=== PATIENT | female | born 1945 | race Caucasian/White ===

== ENCOUNTER → 2024-09-21 | Outpatient (CLI) | payer MEDICARE, BC, SELFPAY ==
[2024-09-21 11:26] LABS: Basophils # (Auto) 0.1 Thou/mm3 (0.0-0.2); Basophils % (Auto) 1 % (0-2.5); Eosinophils # (Auto) 0.3 Thou/mm3 (0.0-0.5); Eosinophils % (Auto) 2 % (0-10); Hematocrit 37.4 % (36.0-46.0); Hemoglobin 12.8 g/dL (12.0-16.0); Immature Granulocytes % (Auto) 1 % (0-0); Lymphocytes # (Auto) 3.5 Thou/mm3 (1.0-4.8); Lymphocytes % (Auto) 23 % (10-50); Mean Corpuscular HGB Conc 34.2 g/dl (31.0-37.0); Mean Corpuscular Hemoglobin 28.4 pg (25.0-35.0); Mean Corpuscular Volume 83 fL (80-100); Monocytes % (Auto) 7 % (0-12); Neutrophils # (Auto) 10.3 Thou/mm3 (1.8-7.7); Neutrophils % (Auto) 67 % (37-80); Nucleated Red Blood Cell % 0 /100 WBC (0); Platelet Count 261 Thou/mm3 (140-440); RDW Standard Deviation 41.4 fL (36.4-46.3); White Blood Count 15.3 Thou/mm3 (3.6-11.0)
[2024-09-21 11:36] LABS: Glucose Estimated Average 246 mg/dL (80-131); Hemoglobin A1C 10.2 % Hgb (4.8-6.0)
[2024-09-21 11:54] LABS: Alanine Aminotransferase 28 U/L (10-49); Albumin, Serum 4.6 gm/dL (3.4-4.8); Albumin/Globulin Ratio 1.8 (1.2-2.2); Alkaline Phosphatase 64 U/L (46-116); Anion Gap 8 (7-16); Aspartate Amino Transferase 25 U/L (0-34); BUN/Creatinine Ratio 18 Ratio (12-20); Bilirubin,Total 0.3 mg/dL (0.3-1.2); Blood Urea Nitrogen 18 mg/dL (9-23); Calcium 9.4 mg/dL (8.3-10.6); Calcium (Corrected) 9.4 mg/dL (8.5-10.1); Carbon Dioxide 24.9 mMol/L (20.0-31.0); Cardiac Risk Estimate 2.9 RATIO (3.7-5.6); Chloride 107 mMol/L (98-107); Cholesterol 172 mg/dL (132-200); Free T4 (Free Thyroxine) 1.14 ng/dL (0.89-1.76); Globulin 2.5 gm/dL (2.3-3.5); Glucose 177 mg/dL (74-106); HDL Cholesterol 59 mg/dL (40-60); LDL Cholesterol,Calculated 74 mg/dL (0-130); Osmolality,Calculated 285 (275-295); Potassium 4.2 mMol/L (3.4-5.1); Sodium 140 mMol/L (136-145); Thyroid Stimulating Hormone 1.12 uIU/mL (0.55-4.78); Total Protein 7.1 gm/dL (5.7-8.2); Triglycerides 196 mg/dL (30-150); eGFR 57 See Note
[2024-09-21 12:21] LABS: Folate > 24.00 ng/mL (>5.38); Vitamin B12 775 pg/mL (211-911); Vitamin D 25 Hydroxy Total 26.1 ng/mL (7.3-40.2)
== END | disposition home or self-care (01) ==
LOC: COPL 09:55
PROVIDERS: PCP Family Medicine; Referring Provider Nurse Practitioner; Visit Provider Nurse Practitioner
DX: Z13.1 Encounter for screening for diabetes mellitus (principal); R53.83 Other fatigue
CPT/HCPCS: 36415; 80053; 80061; 82306; 82607; 82746; 83036; 84439; 84443; 84481; 85025

== ENCOUNTER → 2024-11-02 | Outpatient (CLI) | payer MEDICARE, BC, SELFPAY ==
[2024-11-02 09:02] LABS: Collection Type, Urine Clean Catch
[2024-11-02 09:40] LABS: Basophils # (Auto) 0.1 Thou/mm3 (0.0-0.2); Basophils % (Auto) 1 % (0-2.5); Eosinophils # (Auto) 0.3 Thou/mm3 (0.0-0.5); Eosinophils % (Auto) 3 % (0-10); Hematocrit 39.1 % (36.0-46.0); Hemoglobin 12.7 g/dL (12.0-16.0); Immature Granulocytes % (Auto) 1 % (0-0); Immature Granulocytes Auto 0.06 Thou/mm3 (0.00-0.00); Lymphocytes # (Auto) 3.7 Thou/mm3 (1.0-4.8); Lymphocytes % (Auto) 33 % (10-50); Mean Corpuscular HGB Conc 32.5 g/dl (31.0-37.0); Mean Corpuscular Hemoglobin 28.2 pg (25.0-35.0); Mean Corpuscular Volume 87 fL (80-100); Monocytes # (Auto) 0.7 Thou/mm3 (0.0-0.8); Monocytes % (Auto) 6 % (0-12); Neutrophils # (Auto) 6.4 Thou/mm3 (1.8-7.7); Neutrophils % (Auto) 57 % (37-80); Nucleated Red Blood Cell % 0 /100 WBC (0); Platelet Count 292 Thou/mm3 (140-440); RDW Standard Deviation 46.2 fL (36.4-46.3); White Blood Count 11.3 Thou/mm3 (3.6-11.0)
[2024-11-02 09:45] LABS: Glucose Estimated Average 235 mg/dL (80-131); Hemoglobin A1C 9.8 % Hgb (4.8-6.0)
[2024-11-02 10:03] LABS: Alanine Aminotransferase 22 U/L (10-49); Albumin, Serum 4.4 gm/dL (3.4-4.8); Alkaline Phosphatase 51 U/L (46-116); Anion Gap 10 (7-16); Aspartate Amino Transferase 18 U/L (0-34); BUN/Creatinine Ratio 18 Ratio (12-20); Bilirubin,Total 0.4 mg/dL (0.3-1.2); Blood Urea Nitrogen 18 mg/dL (9-23); Calcium 9.7 mg/dL (8.3-10.6); Calcium (Corrected) 9.7 mg/dL (8.5-10.1); Carbon Dioxide 23.5 mMol/L (20.0-31.0); Chloride 108 mMol/L (98-107); Free T4 (Free Thyroxine) 1.08 ng/dL (0.89-1.76); Globulin 2.2 gm/dL (2.3-3.5); Glucose 184 mg/dL (74-106); Osmolality,Calculated 288 (275-295); Potassium 4.9 mMol/L (3.4-5.1); Sodium 141 mMol/L (136-145); Thyroid Stimulating Hormone 1.38 uIU/mL (0.55-4.78); Total Protein 6.6 gm/dL (5.7-8.2); eGFR 57 See Note
[2024-11-02 10:11] LABS: Bacteria,Urine Rare; Bilirubin,Urine Negative (Negative); Blood,Urine Negative (Negative); Color,Urine Lt-Yellow (Lt Yel-Yel); Glucose, Urine Negative (Negative); Ketones,Urine Negative (Negative); Leukocyte Esterase,Urine Positive (Negative); Nitrite,Urine Negative (Negative); PH,Urine 5.5 (5.0-7.0); Protein,Urine Negative (Neg - Trace); RBC,Urine 2 /hpf (0-3); Specific Gravity,Urine 1.016 (1.001-1.035); Squamous Epithelial Cell,Urine 9 /hpf (0-5); Urobilinogen,Urine Negative mg/dL (0.0-1.0); WBC,Urine 83 /hpf (0-5)
[2024-11-02 10:23] LABS: Clarity,Urine Hazy (Clear/Hazy)
== END | disposition home or self-care (01) ==
PROVIDERS: PCP Nurse Practitioner Family; Referring Provider Nurse Practitioner Family; Visit Provider Nurse Practitioner Family
DX: E11.9 Type 2 diabetes mellitus without complications (principal)
CPT/HCPCS: 36415; 80053; 81001; 83036; 84439; 84443; 85025

== ENCOUNTER 2024-11-04 06:10 | Emergency (ER) | payer MEDICARE, BC, SELFPAY ==
[2024-11-04 06:22] VITALS: BP 144/72; PULSE 69; RESP 12; TEMP 36.8; O2SAT 97
[2024-11-04 06:23] VITALS: PULSE 82; RESP 18; O2SAT 98; BMI 28.9
--- NOTE | 2024-11-04 06:44 | PD.EDADULT ---
ED General RME/HPI General Chief complaint: Abdominal Pain Stated complaint: FALL/RT FLANK PAIN Time Seen by Provider: 11/04/24 06:43 Arrival date/time: 11/04/24 06:10 RME / HPI RME / HPI narrative: DR. NOGUEIRA MAIN ED EVALUATION: 79 year old female with past medical history significant for depression, diabetes mellitus, and hypertension presents to the Emergency Department accompanied by her with complaints of not being able to urinate and right flank/ right-sided abdominal pain. Symptoms since this morning. She also mentions this morning at 3 AM she was trying to go to the restroom and she tripped over her walker and fell. No injuries reported. Here, she is very tender to palpation over the chest area. Related Data Home Medications ?Medication ?Instructions ?Recorded ?Confirmed albuterol sulfate 90 mcg/actuation 2 puff inhalation Q4H PRN sob 07/09/17 10/31/20 aerosol inhaler (ProAir HFA) glipizide 5 mg tablet 5 mg PO QDAY 07/09/17 10/31/20 lisinopril 10 mg tablet 10 mg PO QDAY 07/09/17 10/31/20 rosuvastatin 10 mg tablet 10 mg PO HS 10/29/20 10/31/20 escitalopram oxalate 10 mg tablet 10 mg PO QDAY 10/31/20 10/31/20 sitagliptin phos 100 mg-metformin 1 tab PO QPM 10/31/20 10/31/20 ER 1,000 mg tablet,extend rel 24h mp (Janumet XR) Previous Rx's ?Medication ?Instructions ?Recorded acetaminophen 300 mg-codeine 30 mg 1 tab PO Q6HR PRN Pain #40 tabs 11/01/20 tablet docusate sodium 100 mg capsule 100 mg PO QDAY #30 caps 11/01/20 (DOK) rivaroxaban 10 mg tablet (Xarelto) 10 mg PO Q24H #25 tabs 11/01/20 cefuroxime axetil 500 mg tablet 500 mg PO BID #14 tabs 09/09/22 Allergies Allergy/AdvReac Type Severity Reaction Status Date / Time No Known Allergies Allergy Verified 11/04/24 09:37 Review of Systems Review of Systems Systems Reviewed: All systems reviewed, normal except as documented Narrative Review of Systems: Constitutional: DENIES: fevers; Eyes: DENIES: loss of vision; Head/Ear/Nose: DENIES: loss of hearing. Throat: DENIES: dysphagia. Cardiovascular: POSITIVES: chest pain; DENIES: dyspnea, or syncope. Respiratory: DENIES: shortness of breath; Gastrointestinal: POSITIVES: right flank/ right-sided abdominal pain DENIES: rectal bleeding or melena. Genitourinary: POSITIVES: not being able to urinate; DENIES: dysuria (painful or difficult urination); Musculoskeletal: DENIES: arthralgia (pain in a joint); Skin: DENIES: rash; Neurological: DENIES: loss of function or movement; Psychiatric: DENIES: recent major life stressor, emotional problem, illicit drug use or abuse; Endocrinology: DENIES: weight change,; Hematologic/Lymphatic: DENIES: abnormal bruising. Allergic/Immunologic: DENIES: urticaria (hives). Past Medical History Past Medical History CARDIAC: Positive Cardiac Disorders, Hypercholesterolemia and Hypertension RESPIRATORY: Positive Chronic Obstructive Pulmonary Disease (COPD) GASTROINTESTINAL: Positive Gastrointestinal Disorders and Gastroesophageal Reflux Disease REPRODUCTIVE: Positive Previous Pregnancies MUSCULOSKELETAL: Positive Musculoskeletal Disorders, Arthritis and Carpal Tunnel Syndrome ENDOCRINE: Positive Endocrine Disorders, Diabetes Mellitus Type 1 and Diabetes Mellitus Type 2 PSYCHO/SOCIAL: Positive Depression and Anxiety OTHER HISTORY: Positive Hospitalization Family History FAMILY HISTORY: Positive Family Psychiatric Problems, Family Respiratory Disorders, Family Cardiac Disorders and Family Surgery Surgical History SURGICAL: Positive Eye Surgery, Abdominal Surgery, Joint Replacement, Hysterectomy and Section Social History SMOKING STATUS: Never smoker SECOND HAND EXPOSURE: Yes ED Exam Narrative Physical exam: Physical Exam: General: The vital signs were reviewed. The patient is non-toxic, in no apparent distress and appears healthy with a patent airway, no respiratory distress and has no apparent circulatory problems. Head & Scalp: Normocephalic, atraumatic. Face: Appears normal and is without lesions, deformity. Ears: Left external pinna appears normal. Right external pinna appears normal. Eyes: The sclera is anicteric. No obvious photophobia. The Left and Right Orbit/Lid/Conjunctiva appears normal without swelling, discoloration or injection. Nose: The nose is without deformity, discharge or tenderness; Throat: Appears normal. The mucous membranes are pink and moist without exudates, redness or mass seen. The tongue appears normal. Neck: The neck is supple and no apparent mass or adenopathy. Chest: Right lateral thorax is very tender to palpation no crepitus was felt. No palpable subcu air the chest wall is normal in size and symmetry and has no chest wall tenderness or crepitus. The patient displays normal ventilator effort without retractions, accessory muscle use and has adequate air movement bilaterally with no wheezes and no rales. Cardiovascular: Regular rate and rhythm; No murmurs, rubs, or gallops; Gastrointestinal: The abdomen appears normal. No obvious hernias or mass. The abdomen is soft and benign, non-distended, with no pain, no guarding and no rebound tenderness. Bowel sounds are present and normal sounding. No CVA tenderness. Genitourinary: Back/Spine: Normal inspection Extremities/Musculoskeletal/lymphatic: The bilateral upper and lower extremities are warm. There is no evidence of arterial insufficiency. There is no evidence of venous insufficiency/edema. The patient spontaneously moves bilateral upper and lower extremities with no pain and no limitation of movement. There is no apparent, injury or trauma. Skin: The skin is warm, dry and intact. No rashes. No petechia. No purpura. No abnormal bruising. The color is appropriate with no cyanosis. Mental status/Psychiatric: Mental status is appropriate for age. The patient has no apparent delusions, visual hallucinations, no apparent audible hallucinations. The patient has no apparent suicidal thoughts/ideation and no apparent homicidal thoughts/ideation. Neurological: The patient is awake, alert, interactive, cordial, cooperative and is oriented to name and situation. The patient follows commands and answers historical question with no impairment. There is no visual disturbance apparent. The pupils are equal and reactive bilaterally with normal eye movements and no diplopia The bilateral upper and lower extremities have normal strength, normal range of motion and normal functioning. The gait, station and balance appear to be baseline with no acute change Course Quality Measures none Orders Category Date Time Status EKG (ED ONLY) *Do not use* NOW Care 11/04/24 06:48 Completed Caruso [Urinary Catheter] QS Care 11/04/24 06:44 Active Insert IV NOW Care 11/04/24 09:42 Active Miscellaneous Nursing Order NOW Care 11/04/24 06:48 Active EKG (ED Only) Stat Exams 11/04/24 06:48 Ordered XR chest 1V portable Stat Exams 11/04/24 06:48 Completed B-Type Natriuretic Peptide Stat Lab 11/04/24 07:11 Completed CBC Stat Lab 11/04/24 07:11 Completed Comprehensive Metabolic Panel Stat Lab 11/04/24 07:11 Completed Drug Screen,Urine Stat Lab 11/04/24 06:56 Completed Lactate (Lactic Acid) Stat Lab 11/04/24 07:11 Completed Lipase Stat Lab 11/04/24 07:11 Completed Magnesium Stat Lab 11/04/24 07:11 Completed Partial Thromboplastin Time Stat Lab 11/04/24 07:11 Completed Prothrombin Time with INR Stat Lab 11/04/24 07:11 Completed Troponin I Stat Lab 11/04/24 07:11 Completed Urinalysis Stat Lab 11/04/24 06:56 Completed Urinalysis, C/S if Indicated Stat Lab 11/04/24 06:56 Completed Venous Blood Gas Stat Lab 11/04/24 07:11 Completed Morphine Inj Med 11/04/24 09:42 Discontinued 4 mg IVP X1 ONE Ondansetron Inj [Zofran Inj] Med 11/04/24 09:42 Discontinued 4 mg IVP X1 ONE Vital Signs Vital signs: Vital Signs Temperature 98.3 F 11/04/24 06:22 Pulse Rate 69 11/04/24 06:22 Respiratory Rate 12 11/04/24 06:22 Blood Pressure 144/72 H 11/04/24 06:22 Pulse Oximetry (%) 97 11/04/24 06:22 Discharge Plan Plan Patient Disposition: HOME (Self Care) Prescriptions/Referrals Prescriptions/Med Rec: No Action lisinopril 10 mg Tablet 10 mg PO QDAY albuterol sulfate [ProAir HFA] 90 mcg/actuation Hfa Aerosol Inhaler 2 puff INHALATION Q4H PRN (Reason: sob) glipizide 5 mg Tablet 5 mg PO QDAY rosuvastatin 10 mg Tablet 10 mg PO HS escitalopram oxalate 10 mg tablet 10 mg PO QDAY Patient Comments: TAKE 1 TABLET BY MOUTH DAILY Janumet XR 100-1,000 mg tablet, ER multiphase 24 hr 1 tab PO QPM Patient Comments: TAKE 1 TABLET BY MOUTH EVERY EVENING WITH MEALS acetaminophen-codeine 300-30 mg Tablet 1 tab PO Q6HR MDD 4 PRN (Reason: Pain) Qty: 40 0RF docusate sodium [DOK] 100 mg Capsule 100 mg PO QDAY Qty: 30 0RF Xarelto 10 mg Tablet 10 mg PO Q24H Qty: 25 0RF cefuroxime axetil 500 mg tablet 500 mg PO BID Qty: 14 0RF Referrals: No Primary/Family,Physician [Primary Care Provider] - In 1 week Problem List Clinical Impression: Accidental fall, Chest wall contusion Impression comment: Presumed occult rib fractures. Right lateral chest not seen on x-ray Patient/Caregiver Discharge Instructions Education Materials: ED Chest Wall Contusion, ED Contusion, Rib Additional Instructions: As we discussed be careful when you get up. You most likely have a rib fracture that is not seen on the chest x-ray. Expect a minimum of pain in the right lateral chest for 7 to 10 days and if it last 2 to 3 weeks is most likely a rib fracture. Return if getting fevers or worse. Take big deep breaths to stretch out your chest to avoid pneumonia. Use an incentive spirometer to encourage deep breathing and avoid complications. You can use ibuprofen for pain take it with food to avoid upsetting her stomach and bleeding. See your doctor in 3 to 5 days for reevaluation or return if getting worse. Print Language: Welsh MDM Narrative MDM hospital course: Sandra Ingram, am scribing for and in the presence of Dr. Nogueira. Patient 79-year-old who got up this morning and while walking tripped and fell and complains of right lateral chest pain. There is no crepitance felt. Chest x-ray has no infiltrates no effusion no hemopneumothorax. Heart silhouette is within normal limits. Medical workup reveals urine drug screen positive for marijuana otherwise negative. CBC with a white count of 13.7 hemoglobin of 12.2. PT/INR within normal limits pH is 7.44 and a venous blood gas pCO2 of 37 electrolytes are normal BUN/creatinine are 15 and 0.8. Glucose is 171 lactic acid is normal at 1.7 AST ALT and bilirubins are within normal limits troponin and BNP are negative. Patient was having lots of pain got some morphine and Zofran is feeling much better and feels like she is safe to go home. Nurse got her up to ambulate her and she ambulated with pain but stable. Also patient reported that she could not pee when she arrived and was sitting on the bedpan with no urine output so we put a Caruso catheter and got 200 cc out. Do not feel she has acute urinary retention based on that number. We will remove the catheter. Clinical Information Provided by patient and EMS Medical Records Reviewed EMS Meds/Rx Considered, not Ordered None Labs/Rad/Tests considered, not Ordered None Chronic Illness/Social Conditions Add or document further as needed: depression, diabetes mellitus, and hypertension EKG EKG Interpretation narrative: My interpretation: EKG performed at 0646 hours, junctional rhythm with occasional ventricular premature complexes, rate 63, no STEMI Lab Interpretation Labs: see narrative above Imaging Imaging interpretation: see narrative above Provider imaging interpretation(s): Chest x-ray: my interpretation shows: no infiltrates, no effusion, no pneumothorax, no obvious rib fractures but she did not take a deep breath Radiology reports / interpretation(s): Procedure(s): XR chest 1V portable Accession Number(s): [id number] cc: Alexander Nogueira MD; Gordon Rodriguez MD; NO PRIMARY/FAMILY,PHYSICIAN~ Examination: AP chest single view TECHNIQUE: AP portable upright chest single view Date and time: November 04, 2024 0743 hours Comparison 05/31/2023 INDICATIONS: Acute chest pain today. FINDINGS: Normal heart size Lungs are clear. Reverse right shoulder arthroplasty Advanced narrowing left glenohumeral joint IMPRESSION: No active disease Dictated By: Gordon Rodriguez MD Medication Administration(s) Medication Administration History Discontinued Medications Morphine Sulfate (Morphine Sulf Inj 10 Mg/Ml Vial) 4 mg IVP X1 ONE Stop: 11/04/24 09:43 Last Admin: 11/04/24 09:50 Dose: 4 mg Documented By: ARSEN Ondansetron HCl (Ondansetron Inj 2 Mg/Ml Inj 2 Ml) 4 mg IVP X1 ONE; Protocol Stop: 11/04/24 09:43 Last Admin: 11/04/24 09:48 Dose: 4 mg Documented By: ARSEN Diagnosis Differential diagnosis: Kidney stones, UTI, costochondritis, muscle spasm Most likely dx, and/or detailed dx discussion: Accidental fall Chest wall contusion Dispositon Disposition: Discharge Home
--- NOTE | 2024-11-04 06:48 | XR_ITS ---
Examination: AP chest single view TECHNIQUE: AP portable upright chest single view Date and time: November 04, 2024 0743 hours Comparison 05/31/2023 INDICATIONS: Acute chest pain today. FINDINGS: Normal heart size Lungs are clear. Reverse right shoulder arthroplasty Advanced narrowing left glenohumeral joint IMPRESSION: No active disease
[2024-11-04 07:06] LABS: Collection Type, Urine Clean Catch
[2024-11-04 07:18] LABS: Base Excess, Venous 1 (-3-3); Lactate (Lactic Acid) 1.7 mMol/L (0.4-2.0); O2 Saturation, Venous 61 % (96-97); PCO2, Venous 37 mmHg (36-56); PO2, Venous 30 mmHg (15-58); pH, Venous 7.44 (7.33-7.66)
[2024-11-04 07:26] LABS: Bilirubin,Urine Negative (Negative); Blood,Urine Negative (Negative); Clarity,Urine Clear (Clear/Hazy); Color,Urine Lt-Yellow (Lt Yel-Yel); Culture Indicated,Urine Not Indicated; Glucose, Urine Trace (Negative); Ketones,Urine Negative (Negative); Leukocyte Esterase,Urine Negative (Negative); Nitrite,Urine Negative (Negative); Protein,Urine Negative (Neg - Trace); RBC,Urine 2 /hpf (0-3); Specific Gravity,Urine 1.015 (1.001-1.035); Squamous Epithelial Cell,Urine < 1 /hpf (0-5); Urobilinogen,Urine Negative mg/dL (0.0-1.0); WBC,Urine 1 /hpf (0-5)
[2024-11-04 07:27] LABS: Amphetamine/Methamp Scrn,U Negative (Negative); Barbiturate Screen,Urine Negative (Negative); Benzodiazepines Screen,Urine Negative (Negative); Benzoylecgonine Screen, Ur Negative (Negative); Fentanyl Screen,Urine Negative (Negative); Opiate Screen,Urine Negative (Negative); THC Screen,Urine Positive (Negative)
[2024-11-04 07:29] LABS: Basophils # (Auto) 0.1 Thou/mm3 (0.0-0.2); Basophils % (Auto) 0 % (0-2.5); Eosinophils # (Auto) 0.2 Thou/mm3 (0.0-0.5); Eosinophils % (Auto) 1 % (0-10); Hematocrit 35.3 % (36.0-46.0); Hemoglobin 12.2 g/dL (12.0-16.0); Immature Granulocytes % (Auto) 1 % (0-0); Immature Granulocytes Auto 0.08 Thou/mm3 (0.00-0.00); Lymphocytes # (Auto) 3.2 Thou/mm3 (1.0-4.8); Lymphocytes % (Auto) 23 % (10-50); Mean Corpuscular HGB Conc 34.6 g/dl (31.0-37.0); Mean Corpuscular Hemoglobin 28.5 pg (25.0-35.0); Mean Corpuscular Volume 83 fL (80-100); Monocytes # (Auto) 0.7 Thou/mm3 (0.0-0.8); Monocytes % (Auto) 5 % (0-12); Neutrophils # (Auto) 9.5 Thou/mm3 (1.8-7.7); Neutrophils % (Auto) 69 % (37-80); Nucleated Red Blood Cell % 0 /100 WBC (0); Platelet Count 222 Thou/mm3 (140-440); RDW Standard Deviation 43.2 fL (36.4-46.3); Red Blood Count 4.28 Miln/mm3 (4.00-5.20); White Blood Count 13.7 Thou/mm3 (3.6-11.0)
[2024-11-04 07:38] LABS: Partial Thromboplastin Time 22.5 Seconds (22.0-36.0); Prothrombin Time 11.3 Seconds (9.0-12.2)
[2024-11-04 07:40] LABS: Alanine Aminotransferase 25 U/L (10-49); Albumin, Serum 4.4 gm/dL (3.4-4.8); Albumin/Globulin Ratio 2.1 (1.2-2.2); Alkaline Phosphatase 49 U/L (46-116); Anion Gap 8 (7-16); Aspartate Amino Transferase 21 U/L (0-34); BUN/Creatinine Ratio 19 Ratio (12-20); Bilirubin,Total 0.4 mg/dL (0.3-1.2); Blood Urea Nitrogen 15 mg/dL (9-23); Calcium 9.5 mg/dL (8.3-10.6); Calcium (Corrected) 9.5 mg/dL (8.5-10.1); Carbon Dioxide 24.5 mMol/L (20.0-31.0); Chloride 108 mMol/L (98-107); Creatinine (Component) 0.8 mg/dL (0.6-1.3); Estimated Creatinine Clearance 48.7 mL/min (>60); Globulin 2.1 gm/dL (2.3-3.5); Glucose 171 mg/dL (74-106); Lipase 60 U/L (12-53); Magnesium 1.4 mg/dL (1.6-2.6); Osmolality,Calculated 284 (275-295); Potassium 4.4 mMol/L (3.4-5.1); Sodium 140 mMol/L (136-145); Total Protein 6.5 gm/dL (5.7-8.2); Troponin I < 0.020 ng/mL (0.0-0.045); eGFR > 60 See Note
[2024-11-04 07:42] LABS: B-Type Natriuretic Peptide 56 pg/mL (0-100)
[2024-11-04 08:01] VITALS: BP 158/86; PULSE 78; RESP 19; O2SAT 97
[2024-11-04] MEDS: ONDANSETRON INJ 2 MG/ML INJ 2 ML 4 MG IVP (09:48)
[2024-11-04] MEDS: MORPHINE SULF INJ 10 MG/ML VIAL 4 MG IVP (09:50)
[2024-11-04 10:14] VITALS: BP 147/90; PULSE 76; RESP 18; TEMP 36.6; O2SAT 97
[2024-11-04 12:03] VITALS: BP 124/77; PULSE 71; RESP 18; TEMP 36.9; O2SAT 95
--- NOTE | 2024-11-04 12:36 | PC.NURSE ---
patient walked around unit with minimal assistance
--- NOTE | 2024-11-04 12:52 | PC.NURSE ---
attempted to call patients for pickup no answer at this time
[2024-11-04 13:37] VITALS: BP 131/81; PULSE 69; RESP 20; TEMP 36.5; O2SAT 98
== END 2024-11-04 13:39 | disposition home or self-care (01) ==
PROVIDERS: Emergency Provider Emergency Medicine
DX: S20.219A Contusion of unspecified front wall of thorax, initial encounter (principal); I49.3 Ventricular premature depolarization; I10 Essential (primary) hypertension; E78.00 Pure hypercholesterolemia, unspecified; W01.0XXA Fall on same level from slipping, tripping and stumbling without subsequent striking against object, initial encounter; Y93.01 Activity, walking, marching and hiking; Y92.002 Bathroom of unspecified non-institutional (private) residence as the place of occurrence of the external cause
CPT/HCPCS: 51702; 36415; 71045; 80053; 80307; 81001; 82803; 83605; 83690; 83735; 83880; 84484; 85025; 85610; 85730; 96374; 96375; 99284; A4314; J2270; J2405

== ENCOUNTER 2024-11-06 07:24 | Emergency (ER) | payer MEDICARE, BC, SELFPAY ==
[2024-11-06 07:29] VITALS: BP 149/73; PULSE 65; RESP 18; TEMP 37.1; O2SAT 96; BMI 28.3
--- NOTE | 2024-11-06 07:45 | PC.NURSE ---
PATIENT CAME IN WITH C/O RT RIB PAIN S/P FALL 2 DAYS AGO. PT WAS SEEN HERE AND WAS DX WITH RIB CONTUSIONS. PT STATES HER TAKES CARE OF HER BUT HE'S OLD AND HE CANT ANYMORE. PT APPEARS FRUSTRATED WITH HIM. I ASKED IF SHE HAD TAKEN ANY OF HER PRESCRIBED MEDS FOR PAIN SHE SAID HER HAS NOT GIVEN THEM TO HER. PT REQUEST INFO ON SNF PLACEMENT
--- NOTE | 2024-11-06 07:53 | PD.EDADULT ---
ED General RME/HPI General Chief complaint: Chest Pain Stated complaint: BROKEN RIBS Time Seen by Provider: 11/06/24 07:53 Arrival date/time: 11/06/24 07:24 Limitations: no limitations RME / HPI RME / HPI narrative: DR. GOSS MAIN ED EVALUATION: 79 year old female with past medical history significant for diabetes mellitus, hypertension, and depression presents to the Emergency Department [facility] with complaint of right rib/ chest pain worsening today. Patient was seen here and discharged with accidental fall and chest wall contusion on 11/04/24. No other symptoms reported at this time. Related Data Home Medications ?Medication ?Instructions ?Recorded ?Confirmed albuterol sulfate 90 mcg/actuation 2 puff inhalation Q4H PRN sob 07/09/17 10/31/20 aerosol inhaler (ProAir HFA) glipizide 5 mg tablet 5 mg PO QDAY 07/09/17 10/31/20 lisinopril 10 mg tablet 10 mg PO QDAY 07/09/17 10/31/20 rosuvastatin 10 mg tablet 10 mg PO HS 10/29/20 10/31/20 escitalopram oxalate 10 mg tablet 10 mg PO QDAY 10/31/20 10/31/20 sitagliptin phos 100 mg-metformin 1 tab PO QPM 10/31/20 10/31/20 ER 1,000 mg tablet,extend rel 24h mp (Janumet XR) Previous Rx's ?Medication ?Instructions ?Recorded acetaminophen 300 mg-codeine 30 mg 1 tab PO Q6HR PRN Pain #40 tabs 11/01/20 tablet docusate sodium 100 mg capsule 100 mg PO QDAY #30 caps 11/01/20 (DOK) rivaroxaban 10 mg tablet (Xarelto) 10 mg PO Q24H #25 tabs 11/01/20 cefuroxime axetil 500 mg tablet 500 mg PO BID #14 tabs 09/09/22 hydrocodone 5 mg-acetaminophen 325 1 tab PO Q12H pain #14 tabs 11/06/24 mg tablet Allergies Allergy/AdvReac Type Severity Reaction Status Date / Time No Known Allergies Allergy Verified 11/04/24 09:37 Review of Systems Review of Systems Systems Reviewed: All systems reviewed, normal except as documented Past Medical History Past Medical History CARDIAC: Positive Cardiac Disorders, Hypercholesterolemia and Hypertension RESPIRATORY: Positive Chronic Obstructive Pulmonary Disease (COPD) GASTROINTESTINAL: Positive Gastrointestinal Disorders and Gastroesophageal Reflux Disease REPRODUCTIVE: Positive Previous Pregnancies MUSCULOSKELETAL: Positive Musculoskeletal Disorders, Arthritis and Carpal Tunnel Syndrome ENDOCRINE: Positive Endocrine Disorders, Diabetes Mellitus Type 1 and Diabetes Mellitus Type 2 PSYCHO/SOCIAL: Positive Depression and Anxiety OTHER HISTORY: Positive Hospitalization Family History FAMILY HISTORY: Positive Family Psychiatric Problems, Family Respiratory Disorders, Family Cardiac Disorders and Family Surgery Surgical History SURGICAL: Positive Eye Surgery, Abdominal Surgery, Joint Replacement, Hysterectomy and Section Social History SMOKING STATUS: Never smoker SECOND HAND EXPOSURE: Yes SUBSTANCE USE: does not use ALCOHOL: Never ED Exam General Limitations: Present no limitations General appearance: Present alert, in no apparent distress and other (Patient seems sad.) Head Head exam: Present atraumatic, normocephalic and normal inspection Eye Eye exam: Present normal appearance, PERRL and EOMI ENT ENT exam: Present normal exam, normal oropharynx and mucous membranes moist Neck Neck exam: Present normal inspection, full ROM and trachea midline Chest Chest inspection: Present symmetric chest wall rise and tenderness (right anterior chest tenderness) Respiratory Respiratory exam: Present normal lung sounds bilaterally Cardiovascular Cardiovascular exam: Present regular rate, normal rhythm and normal heart sounds Abdominal Exam Abdominal exam: Present tenderness (right flank tenderness) and normal bowel sounds Extremities Exam Extremities exam: Present normal inspection and full ROM Back Exam Back exam: Present normal inspection and full ROM Neurological Exam Neurological exam: Present alert, oriented X3 and CN II-XII intact Psychiatric Psychiatric exam: Present normal affect and normal mood Skin Skin exam: Present warm, dry, intact and normal color Course Quality Measures none Orders Category Date Time Status Consult [employer]sembl[employer] NOW Care 11/06/24 08:02 Active XR ribs RT min 3V w CXR1V Stat Exams 11/06/24 07:57 Completed Ketorolac Inj [Toradol Inj] Med 11/06/24 07:57 Discontinued 30 mg IM X1 ONE Vital Signs Vital signs: Vital Signs Temperature 98.7 F 11/06/24 07:29 Pulse Rate 65 11/06/24 07:29 Respiratory Rate 18 11/06/24 07:29 Blood Pressure 149/73 H 11/06/24 07:29 Pulse Oximetry (%) 96 11/06/24 07:29 Oxygen Delivery Method Room Air 11/06/24 07:29 Discharge Plan Plan Patient Disposition: HOME (Self Care) Patient condition on transfer: Stable Prescriptions/Referrals Prescriptions/Med Rec: New hydrocodone-acetaminophen 5-325 mg tablet 1 tab PO Q12H MDD 2 Qty: 14 0RF No Action lisinopril 10 mg Tablet 10 mg PO QDAY albuterol sulfate [ProAir HFA] 90 mcg/actuation Hfa Aerosol Inhaler 2 puff INHALATION Q4H PRN (Reason: sob) glipizide 5 mg Tablet 5 mg PO QDAY rosuvastatin 10 mg Tablet 10 mg PO HS escitalopram oxalate 10 mg tablet 10 mg PO QDAY Patient Comments: TAKE 1 TABLET BY MOUTH DAILY Janumet XR 100-1,000 mg tablet, ER multiphase 24 hr 1 tab PO QPM Patient Comments: TAKE 1 TABLET BY MOUTH EVERY EVENING WITH MEALS acetaminophen-codeine 300-30 mg Tablet 1 tab PO Q6HR MDD 4 PRN (Reason: Pain) Qty: 40 0RF docusate sodium [DOK] 100 mg Capsule 100 mg PO QDAY Qty: 30 0RF Xarelto 10 mg Tablet 10 mg PO Q24H Qty: 25 0RF cefuroxime axetil 500 mg tablet 500 mg PO BID Qty: 14 0RF Problem List Clinical Impression: Fracture, rib, Rib contusion Patient/Caregiver Discharge Instructions Education Materials: ED Rib Fracture, ED Contusion, Rib Additional Instructions: Take Tylenol 500 mg 2 tabs every 6 hours PLUS Advil 200 mg gel 2 tablets as needed for pain. Please follow-up with your primary care physician within 2-3 days. Return to the Emergency Department as needed. Print Language: Palestinian Stand Alone Forms: [employer] Award Info., Patient Portal Info Letter MDM Narrative [facility] hospital course: I, Sandra Welch, am scribing for and in the presence of Dr. Goss. Patient seems sad, states her is not able to take care of her. Patient remains clinically stable throughout the emergency department visit. Re-assessment at the time of disposition demonstrates that the patient is in no acute distress. We reviewed all the results, analysis, and treatment plans. Patient is amenable to discharge. Strict return precautions were outlined. Patient was discharged in stable condition. Will follow up with her PCP for possible placement and to follow up her right rib fracture. Clinical Information Provided by patient and EMS Medical Records Reviewed [facility] and EMS Meds/Rx Considered, not Ordered None Labs/Rad/Tests considered, not Ordered None Chronic Illness/Social Conditions Add or document further as needed: Diabetes mellitus, hypertension, and depression EKG EKG not done Lab Interpretation Labs: none Imaging Radiology reports / interpretation(s): Procedure(s): XR ribs RT min 3V w CXR1V Accession Number(s): [id number] cc: Tristen Goss MD; Gordon Rodriguez MD; NO PRIMARY/FAMILY,PHYSICIAN~ Examination: Ribs, right, with AP chest, 5 views Technique: Chest PA, RIBS AP, RPO, LPO, AP coned lower ribs 5 views Exam date and time: November 06, 2024 0934 hrs. Indications: Patient fell today with injury to the right chest, right rib pain Findings: Mild prominence left ventricle Subsegmental atelectasis right base. No pneumothorax Significant osteopenia The ribs are overpenetrated Acute appearing fracture right ninth rib posterior laterally Impression: No pneumothorax Acute appearing fracture right ninth rib posterior laterally Dictated By: Gordon Rodriguez MD Medication Administration(s) Medication Administration History Discontinued Medications Ketorolac Tromethamine (Ketorolac Inj 30 Mg/Ml Vial) 30 mg IM X1 ONE Stop: 11/06/24 07:58 Last Admin: 11/06/24 08:12 Dose: 30 mg Documented By: LF Diagnosis Differential diagnosis: Rib contusion, rib fracture, costochondritis Most likely dx, and/or detailed dx discussion: Rib contusion Right rib fracture Dispositon Disposition: Discharge Home
--- NOTE | 2024-11-06 07:57 | XR_ITS ---
Examination: Ribs, right, with AP chest, 5 views Technique: Chest PA, RIBS AP, RPO, LPO, AP coned lower ribs 5 views Exam date and time: November 06, 2024 0934 hrs. Indications: Patient fell today with injury to the right chest, right rib pain Findings: Mild prominence left ventricle Subsegmental atelectasis right base. No pneumothorax Significant osteopenia The ribs are overpenetrated Acute appearing fracture right ninth rib posterior laterally Impression: No pneumothorax Acute appearing fracture right ninth rib posterior laterally
[2024-11-06] MEDS: KETOROLAC INJ 30 MG/ML VIAL IM (08:12)
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
--- NOTE | 2024-11-06 08:16 | PC.NURSE ---
LIGIA TEAM PRIMARY CARE PHYSICIAN IN TO SPEAK WITH PT REGARDING REQUEST FOR SNF PLACEMENT. INFO GIVEN TO PT SHOWING ALL AVAILABLE LOCAL SNF'S. LIGIA INFORMED PT THAT SHE WILL NEED TO CALL [facility] ON THURSDAY SO THEY CAN REFER HER TO A SNF. PT VERBALIZED UNDERSTANDING
--- NOTE | 2024-11-06 08:24 | PC.NURSE ---
HERE TO SEE PT, PT NOT WANTING VISITORS AT THIS TIME. AWARE.
[2024-11-06 10:22] VITALS: BP 126/58; PULSE 70; RESP 18; TEMP 36.7; O2SAT 98
--- NOTE | 2024-11-06 11:13 | PC.NURSE ---
ATTEMPTED TO CALL NO ANSWER WILL ATTEMPT TO CALL AGAIN AT A LATER TIME
[2024-11-06 12:09] VITALS: BP 152/87; PULSE 79; TEMP 36.8; O2SAT 96
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
--- NOTE | 2024-11-06 12:28 | PC.NURSE ---
ATTEMPTED TO CALL FINAL ASSEMBLY AND PACKING SUPERVISOR MULTIPLE TIMES NO ANSWER
--- NOTE | 2024-11-06 12:34 | PC.NURSE ---
earl case finisher in room talking with patient
--- NOTE | 2024-11-06 12:38 | PC.NURSE ---
jayesh renal case manager spoke with patient and let me know okay to go
== END 2024-11-06 12:44 | disposition home or self-care (01) ==
PROVIDERS: Emergency Provider Family Medicine
DX: S22.31XA Fracture of one rib, right side, initial encounter for closed fracture (principal); W19.XXXA Unspecified fall, initial encounter; I10 Essential (primary) hypertension; E11.9 Type 2 diabetes mellitus without complications; F32.A Depression, unspecified
CPT/HCPCS: 71101; 96372; 99283; J1885

== ENCOUNTER → 2024-11-15 | Outpatient (CLI) | payer MEDICARE, BC, SELFPAY ==
--- NOTE | 2024-11-15 13:00 | XR_ITS ---
Examination: MRI brain without intravenous contrast. Date and time of exam: November 15, 2024 1341 hours INDICATIONS: Hearing disturbances beginning one month ago Technique: Multiple axial and sagittal images of the brain obtained. Siemens high-resolution 1.5 Tracy short bore scanners utilized. Sagittal sections, T1-weighted, TR 500, TE 14, are performed. Axial sections proton-density and T2-weighted have been obtained. Inversion recovery axial images, TR 9, 260, TE 111, TI 2500. Diffusion weighted images, axial sections, TR 4800, TE 128, B value 1000 Axial sections, ADC map, TR 4800, TE 128 Findings: Enlargement of the sella turcica is not present. The optic chiasm and infundibular are not remarkable. Prepontine and interpeduncular cisterns are not enlarged. There is no localized enlargement of the medulla or brant. Fourth ventricle and cerebellar tonsils appear normal in position. No subacute area of hemorrhage density is seen. Mass in the cerebellopontine angle region is not evident. Globes symmetrical. Orbital musculature including medial lateral rectus muscles do not exhibit abnormality. Diffusion-weighted images demonstrate no focus of restricted diffusion. Increased white matter signal mild Mass effect upon the ventricular system is not identified. Impression: Negative for acute hemorrhage mass effect or midline shift No acute infarct Mild chronic microvascular white matter change Moderate chronic ethmoid sinusitis, severe left maxillary antral chronic sinusitis Mild right mastoiditis
== END | disposition home or self-care (01) ==
PROVIDERS: PCP Family Medicine; Referring Provider Nurse Practitioner Family; Visit Provider Nurse Practitioner Family
DX: R90.82 White matter disease, unspecified (principal); J32.8 Other chronic sinusitis; H70.891 Other mastoiditis and related conditions, right ear
CPT/HCPCS: 70551

== ENCOUNTER 2025-03-07 12:11 | Emergency (ER) | payer MEDICARE, BC, SELFPAY ==
[2025-03-07 12:13] VITALS: BP 138/81; PULSE 74; RESP 16; TEMP 36.6; O2SAT 97
[2025-03-07 12:17] VITALS: PULSE 84; O2SAT 97; BMI 24.7
--- NOTE | 2025-03-07 12:48 | PD.EDRME ---
Rapid Medical Screening Exam RME Arrival date/time: 03/07/25 12:11 79-year-old female with a history of hypertension, hyperlipidemia, type 2 diabetes, presents to the emergency room with no chief complaint. Patient appears confused/dementia and states she was brought to the emergency room by an ambulance after she went to a clinic and could not get home. I have greeted and performed a focused initial assessment of this patient. A comprehensive ED assessment and evaluation of the patient, analysis of all test results, and completion of the medical decision making process will be conducted by additional ED providers. Chief Complaint: General Adult/Misc Complain Vital signs: Vital Signs Temperature 97.9 F 03/07/25 12:13 Pulse Rate 74 03/07/25 12:13 Respiratory Rate 16 03/07/25 12:13 Blood Pressure 138/81 H 03/07/25 12:13 Pulse Oximetry (%) 97 03/07/25 12:13 Oxygen Delivery Method Room Air 03/07/25 12:13 Vital signs reviewed by provider: Yes
[2025-03-07 13:41] LABS: Basophils # (Auto) 0.1 Thou/mm3 (0.0-0.2); Basophils % (Auto) 1 % (0-2.5); Eosinophils # (Auto) 0.2 Thou/mm3 (0.0-0.5); Eosinophils % (Auto) 2 % (0-10); Hematocrit 40.7 % (36.0-46.0); Hemoglobin 13.7 g/dL (12.0-16.0); Immature Granulocytes Auto 0.03 Thou/mm3 (0.00-0.00); Lymphocytes # (Auto) 2.7 Thou/mm3 (1.0-4.8); Lymphocytes % (Auto) 30 % (10-50); Mean Corpuscular HGB Conc 33.7 g/dl (31.0-37.0); Mean Corpuscular Hemoglobin 29.5 pg (25.0-35.0); Mean Corpuscular Volume 88 fL (80-100); Monocytes # (Auto) 0.6 Thou/mm3 (0.0-0.8); Monocytes % (Auto) 7 % (0-12); Neutrophils # (Auto) 5.4 Thou/mm3 (1.8-7.7); Neutrophils % (Auto) 60 % (37-80); Nucleated Red Blood Cell # 0.00 Thou/mm3 (0.00-0.00); Nucleated Red Blood Cell % 0 /100 WBC (0); Platelet Count 206 Thou/mm3 (140-440); RDW Standard Deviation 41.3 fL (36.4-46.3); Red Blood Count 4.65 Miln/mm3 (4.00-5.20); White Blood Count 8.9 Thou/mm3 (3.6-11.0)
[2025-03-07 13:59] LABS: Alanine Aminotransferase 16 U/L (10-49); Albumin, Serum 4.8 gm/dL (3.4-4.8); Albumin/Globulin Ratio 2.3 (1.2-2.2); Alkaline Phosphatase 71 U/L (46-116); Anion Gap 11 (7-16); Aspartate Amino Transferase 15 U/L (0-34); BUN/Creatinine Ratio 18 Ratio (12-20); Bilirubin,Total 0.4 mg/dL (0.3-1.2); Blood Urea Nitrogen 16 mg/dL (9-23); Calcium 10.0 mg/dL (8.3-10.6); Calcium (Corrected) 10.0 mg/dL (8.5-10.1); Carbon Dioxide 23.9 mMol/L (20.0-31.0); Chloride 104 mMol/L (98-107); Creatinine (Component) 0.9 mg/dL (0.6-1.3); Estimated Creatinine Clearance 45.5 mL/min (>60); Globulin 2.1 gm/dL (2.3-3.5); Glucose 306 mg/dL (74-106); Lipase 53 U/L (12-53); Osmolality,Calculated 290 (275-295); Potassium 4.7 mMol/L (3.4-5.1); Sodium 139 mMol/L (136-145); Total Protein 6.9 gm/dL (5.7-8.2); eGFR > 60 See Note
[2025-03-07 15:13] LABS: Collection Type, Urine Clean Catch
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
[2025-03-07 15:27] LABS: Bacteria,Urine Rare; Bilirubin,Urine Negative (Negative); Blood,Urine Negative (Negative); Clarity,Urine Clear (Clear/Hazy); Color,Urine Lt-Yellow (Lt Yel-Yel); Glucose, Urine 4+ (Negative); Ketones,Urine Negative (Negative); Leukocyte Esterase,Urine Positive (Negative); Nitrite,Urine Positive (Negative); PH,Urine 6.5 (5.0-7.0); Protein,Urine Trace (Neg - Trace); RBC,Urine 10 /hpf (0-3); Specific Gravity,Urine 1.034 (1.001-1.035); Squamous Epithelial Cell,Urine 5 /hpf (0-5); Urobilinogen,Urine Negative mg/dL (0.0-1.0); WBC,Urine 44 /hpf (0-5)
--- NOTE | 2025-03-07 16:34 | PC.NURSE ---
No answer at 1630 in lobby or outside of ED. No answer at 1635 in lobby or outside of ED.
--- NOTE | 2025-03-07 16:44 | PC.NURSE ---
No answer in lobby or outside of ED, presumed eloped prior to discharge from ED.
== END 2025-03-07 16:45 | disposition home or self-care (01) ==
PROVIDERS: Nurse Practitioner Family; Emergency Provider Emergency Medicine
DX: F43.0 Acute stress reaction (principal)
CPT/HCPCS: 36415; 80053; 81001; 82140; 83690; 85025; 87077; 87086; 87186; 99281

== ENCOUNTER 2025-03-26 23:30 | Emergency (ER) | payer MEDICARE, BC, SELFPAY ==
--- NOTE | 2025-03-26 23:30 | EDNOTE_ITS ---
Neuro Symptoms Deficit-RME/HPI General Chief Complaint: Neuro Symptoms/Deficit Stated Complaint: POSSIBLE STROKE Time Seen by Provider: 03/26/25 23:34 Arrival date/time: 03/26/25 23:30 RME / HPI RME / HPI Narrative: Dr. Huffman?s Main ED Evaluation: 79yo female BIBA from SNF after patient demonstrated unusual behavior and was noted to have facial asymmetry per SNF staff following medication administration. EMS summoned. Patient was found to be flaccid on left side with left facial droop. Accu-check in the field was normal. Upon arrival, patient is hemodynamically stable without specific complaints. Related Data Home Medications ?Medication ?Instructions ?Recorded ?Confirmed albuterol sulfate 90 mcg/actuation 2 puff inhalation Q 4H PRN sob 07/09/17 10/31/20 aerosol inhaler (ProAir HFA) glipizide 5 mg tablet 5 mg PO QDAY 07/09/17 lisinopril 10 mg tablet 10 mg PO QDAY 07/09/1710/31 rosuvastatin 10 mg tablet 10 mg PO HS 10/29/20 1 escitalopram oxalate 10 mg tablet 10 mg PO QDAY 10/31/20 sitagliptin phos 100 mg-metformin 1 tab PO QPM 1 10/31/20 ER 1,000 mg tablet,extend rel 24h mp (Janumet XR) Previous Rx's ?Medication ?Instructions ?Recorded acetaminophen 300 mg-codeine 30 mg 1 tab PO Q6HR PRN P ain #40 tabs 11/01/20 tablet docusate sodium 100 mg capsule 100 mg PO QDAY #30 caps 11/01/20 (DOK) rivaroxaban 10 mg tablet (Xarelto) 10 mg PO Q24H #25 t abs 11/01/20 cefuroxime axetil 500 mg tablet 500 mg PO BID #14 tabs 09/09/22 hydrocodone 5 mg-acetaminophen 325 1 tab PO Q12H pain #14 tabs 11/06/24 mg tablet cephalexin 500 mg tablet 500 mg PO QID #20 tabs 03/07 Allergies Allergy/AdvReac Type Severity Reaction Status Date / Time No Known Allergies Allergy Verified 03/07/25 12:16 Review of Systems Review of Systems Systems Reviewed: All systems reviewed, normal except as documented Past Medical History Past Medical History NEUROLOGIC: Negative Neurological Disorders or Seizures CARDIAC: Positive Cardiac Disorders, Hypercholesterolemia and Hypertension; Negative Congestive Heart Failure, Edema, Cellulitis or Varicose Veins RESPIRATORY: Positive Chronic Obstructive Pulmonary Disease (COPD) GASTROINTESTINAL: Positive Gastrointestinal Disorders and Gastroesophageal Reflux Disease; Negative Hepatitis GENITOURINARY: Negative Genitourinary Disorders or Renal Disease REPRODUCTIVE: Positive Previous Pregnancies MUSCULOSKELETAL: Positive Musculoskeletal Disorders, Arthritis and Carpal Tunnel Syndrome ENDOCRINE: Positive Endocrine Disorders, Diabetes Mellitus Type 1 and Diabetes Mellitus Type 2 HEMATOLOGIC: Negative Blood Disorders PSYCHO/SOCIAL: Positive Depression and Anxiety OTHER HISTORY: Positive Hospitalization; Negative Autoimmune Disease, Falls, Blood Transfusions, Blood Transfusion Reaction, Anesthesia Reactions, Chemotherapy, Radiation Therapy, MRSA, Chicken Pox, Measles, Mumps or Cancer Family History FAMILY HISTORY: Positive Family Psychiatric Problems, Family Respiratory Disorders, Family Cardiac Disorders and Family Surgery; Negative Family Gastrointestinal Problems, Family Cancer or Family Anesthesia Reaction Surgical History SURGICAL: Positive Eye Surgery, Abdominal Surgery, Joint Replacement, Hysterectomy and Section; Negative Pacemaker Social History SMOKING STATUS: Never smoker SECOND HAND EXPOSURE: Yes SUBSTANCE USE: does not use ED Exam Narrative Physical exam: GENERAL APPEARANCE: alert and oriented x 4, well-developed, well-nourished, no acute distress VITALS: All vitals were reviewed and the pulse ox is 96% on room air, which is normal according to my interpretation. 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 2350: Discussed case with Dr. Johnson from teleneurology regarding consultation. Discussed patients ED course, exam findings, labs, and radiology results. Recommends TNKase. 0057: Discussed case with the ICU service from Hospitalist service regarding admission. Discussed patients ED course, exam findings, labs, and radiology results. The Hospitalist requests to wait for the CTA head and neck results. 0130: Dr. 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 Recommends transferring to a higher [id number] for neuro IR/neurosurgery. 0142: Discussed case with [facility]. Discussed patients ED course, exam findings, labs, and radiology results. Dr. Vigil, ED physician, accepts the patient for transfer. Dr. Fernández, neuro IR, agrees to consult. Quality Measures Suspected type of Stroke: Acute Ischemic Last known well (date): 03/26/25 Last known well (time): 22:00 Tenecteplase given: within 60 min of arrival stroke Orders Category Date Time Status Bedside Blood Glucose NOW Care 03/26/25 23:35 Active Clothing Presser NOW Care 03/26/25 23:35 Active Continuous Pulse Oximetry NOW Care 03/26/25 23:35 Completed EKG (ED ONLY) *Do not use* NOW Care 03/26/25 23:35 Completed In and Out Catheter NEEDED Care 03/26/25 23:35 Active Indwelling [Urinary Catheter] QS Care 03/27/25 00:30 Active Insert IV NOW Care 03/26/25 23:35 Active NIH Stroke Scale Q4HX8,QSHIFT Care 03/27/25 00:12 Active NIH Stroke Scale now Care 03/26/25 23:35 Active NPO NOW Care 03/26/25 23:35 Active Neuro Check Q15M Care 03/27/25 00:12 Active Neuro Check Q1HR Care 03/26/25 23:35 Active Nurse Swallow Screen x1 Care 03/26/25 23:35 Active Vital Signs Q5M Care 03/27/25 00:02 Completed Consult to Neurology / Tele-Neurology Routine Cons 03/26/25 23:[address] angio stroke protocol Stat Exams 03/26/25 23:[address] angio stroke protocol Stat Exams 03/27/25 00:[address] stroke protocol Stat Exams 03/26/25 23:35 Completed EKG (ED Only) Stat Exams 03/26/25 23:35 Ordered XR chest 1V portable Stat Exams 03/26/25 23:35 Taken CBC Stat Lab 03/26/25 23:30 Completed Comprehensive Metabolic Panel Stat Lab 03/26/25 23:30 Completed Drug Screen,Urine Stat Lab 03/27/25 00:25 Completed HCG Titer if Positive Stat Lab 03/26/25 23:30 Completed Magnesium Stat Lab 03/26/25 23:30 Completed Partial Thromboplastin Time Stat Lab 03/26/25 23:30 Completed Prothrombin Time with INR Stat Lab 03/26/25 23:30 Completed Troponin I Stat Lab 03/26/25 23:30 Completed Urinalysis, C/S if Indicated Stat Lab 03/27/25 00:25 Completed Labetalol IV [Trandate IV] Med 03/26/25 23:57 Active 10 mg IVP PRNMRX1 PRN Labetalol IV [Trandate IV] Med 03/26/25 23:57 Active 10 mg IVP PRNMRX1 PRN Labetalol IV [Trandate IV] Med 03/26/25 23:35 Active 10 mg IVP Q15M PRN Nicardipine/Ns 20Mg Ivpb [Cardene Ivpb] Med 03/26/25 23:57 Active 20 mg in 200 ml IV 5 mg/hr Ondansetron Inj [Zofran Inj] Med 03/26/25 23:35 Active 4 mg IVP Q4HR PRN Tenecteplase Inj [TNKase Inj] Med 03/26/25 23:57 Discontinued 18.2 mg IV X1 ONE Tenecteplase Inj [TNKase Inj] Med 03/26/25 23:46 Discontinued 50 mg .ROUTE .STK-MED ONE Oxygen Delivery NOW RT 03/26/25 23:35 Active Vital Signs Vital signs: Vital Signs Pulse Rate 99 03/26/25 23:32 Respiratory Rate 24 H 03/26/25 23:32 Blood Pressure 146/107 H 03/26/25 23:32 Pulse Oximetry (%) 96 03/26/25 23:32 Oxygen Delivery Method Room Air 03/26/25 23:32 Neuro Symptoms / Deficit MDM Narrative MDM Narrative:: Scribe Attestation: 03/26/25 Gwen Yepez am scribing for and in the presence of Dr. Huffman. 79yo female BIBA from SNF after patient demonstrated unusual behavior and was noted to have facial asymmetry per SNF staff following medication administration. EMS summoned. Patient was found to be flaccid on left side with left facial droop. Please see PE findings. Patient data External records reviewed:: [facility] previous records (Per chart review, patient was seen here on 03/07/25 for acute reaction to stress.), EMS form and [facility] records (Per [facility], patient is a full code.) Clinical information provided by:: patient and EMS Social determinants that could affect healthcare access:: housing (SNF resident) Patient has the following chronic illnesses:: Alzheimer's, COPD, DM, HTN, HLD How is presenting disease/condition affected by chronic disease/condition?: exacerbated by Evaluation data The following diagnostics were reviewed and interpreted by me:: lab results, radiology exam(s) and EKG tracing(s) Lab and/or radiology exams considered but not ordered:: none Interpretation Summary: [facility] Report Signed Patient: LUCI DIGGS [facility]. Record#: [id number] Birthdate: 1945 Age/Sex: 79 / F Location: [facility] Attending Dr: Ordering Physician: Fahad Flor DO Date of Service: 03/26/25 Procedure(s): CT stroke protocol Accession Number(s): [id number] cc: Fahad Flor DO; Gordon Rodriguez MD~ Examination: CT brain head without contrast. 2-D sagittal coronal reconstructions Date and time of exam: March 26, 2025, 11:44 p.m. INDICATIONS: Onset focal neurologic deficit today COMPARISON: October 17, 2023 CTDI: vol (mGy): 47.2 DLP: (mGycm): 930 Technique: Multiple CT axial sections of the brain have been obtained, 5 mm slice thickness. Contrast has not been administered. 2-D sagittal, coronal reconstructions have been obtained Low dose protocols were performed. One or more of the following dose reduction techniques were used; automated exposure control, adjustment of the mA and/or KV according to patient size, use of iterative reconstruction technique. Findings: No significant ventricular enlargement. Intra-axial or extra-axial hemorrhage density is not seen. No mass effect or midline shift Basal cisterns are not remarkable. Fourth ventricle is midline. Cranial vault intact. Extensive artifacts in the posterior fossa Impression: Limited study, extensive: Artifacts in the posterior fossa No visualized acute hemorrhage mass effect or midline shift Dictated By: Gordon Rodriguez MD Signed By: <Electronically signed by Gordon Rodriguez MD in OV> 03/26/25 2347 Medications / Prescriptions Medications or Prescriptions considered but not ordered:: none Medication administrations:: Medication Administration History Nicardipine/Sodium Chloride (Cardene Ivpb) 20 mg in 200 mls @ 50 mls/hr IV .Q4H PRN; Protocol PRN Reason: Per Nicardipine Stroke Protocol Stop: 04/25/25 23:56 Labetalol HCl (Labetalol Inj 5 Mg/Ml Vial 20 Ml) 10 mg IVP Q15M PRN PRN Reason: HYPER Labetalol HCl (Labetalol Inj 5 Mg/Ml Vial 20 Ml) 10 mg IVP PRNMRX1 PRN PRN Reason: SBP > 185 mmHg and/or DBP > 110 Labetalol HCl (Labetalol Inj 5 Mg/Ml Vial 20 Ml) 10 mg IVP PRNMRX1 PRN PRN Reason: SBP > 180 mmHg or DBP > 105 Ondansetron HCl (Ondansetron Inj 2 Mg/Ml Inj 2 Ml) 4 mg IVP Q4HR PRN PRN Reason: NAUSEA OR VOMITING Stop: 04/25/25 23:34 Discontinued Medications Tenecteplase (Tenecteplase Inj 50 Mg Vial) Confirm Administered Dose 50 mg .ROUTE .STK-MED ONE Stop: 03/26/25 23:47 Last Admin: 03/27/25 00:01 Dose: Not Given Documented By: LENA Non-Admin Reason: Override Medication Tenecteplase (Tenecteplase Inj 50 Mg Vial) 18.2 mg 0.25 mg/kg (18.2 mg) IV X1 ONE Stop: 03/26/25 23:58 Last Admin: 03/26/25 23:59 Dose: 18.2 mg Documented By: LENA Co-signed By: SE see above Consultations Consultation(s) initiated? (list below): Yes Diagnosis Neuro Differential Diagnosis: cerebrovascular accident and other (TIA, ICH) Most likely diagnosis given after review of the tests above:: see clinical impression below Admission Indicated Admission indicated?: not indicated Explain why admission is indicated or not indicated:: Patient requires a higher [id number]. Admission Request Was there a request for admission?: No Disposition Plan Disposition Plan: Transfer Critical Care Time Critical Care Time Critical Care Time: Yes Total Critical Care Time (min.): 40 Attestation: The high probability of sudden, clinically significant deterioration in the patient?s condition required the highest level of my preparedness to intervene urgently. The services I provided to this patient were to treat and/or prevent clinically significant deterioration. Services included the following: chart data review, reviewing nursing notes and/or old charts, documentation time, investigations consultant collaboration regarding findings and treatment options, medication orders and management, direct patient care, vital sign assessments and ordering, interpreting and reviewing diagnostic studies and lab tests. Aggregate critical care time includes only time during which I was engaged in work directly related to the patient?s care, as described above, whether at [facility] or elsewhere in the Emergency Department. It did not include time spent performing other reported procedures or the services of residents, students, nurses or physician assistants. Discharge Plan Plan Patient Disposition: [facility] Facility Pt Being Transferred to: [facility] Service Needed for Transfer: Neurosurgery Prescriptions/Referrals Prescriptions/Med Rec: No Action lisinopril 10 mg Tablet 10 mg PO QDAY albuterol sulfate [ProAir HFA] 90 mcg/actuation Hfa Aerosol Inhaler 2 puff INHALATION Q4H PRN (Reason: sob) glipizide 5 mg Tablet 5 mg PO QDAY rosuvastatin 10 mg Tablet 10 mg PO HS escitalopram oxalate 10 mg tablet 10 mg PO QDAY Patient Comments: TAKE 1 TABLET BY MOUTH DAILY Janumet XR 100-1,000 mg tablet, ER multiphase 24 hr 1 tab PO QPM Patient Comments: TAKE 1 TABLET BY MOUTH EVERY EVENING WITH MEALS acetaminophen-codeine 300-30 mg Tablet 1 tab PO Q6HR MDD 4 PRN (Reason: Pain) Qty: 40 0RF docusate sodium [DOK] 100 mg Capsule 100 mg PO QDAY Qty: 30 0RF Xarelto 10 mg Tablet 10 mg PO Q24H Qty: 25 0RF cephalexin 500 mg tablet 500 mg PO QID Qty: 20 0RF cefuroxime axetil 500 mg tablet 500 mg PO BID Qty: 14 0RF hydrocodone-acetaminophen 5-325 mg tablet 1 tab PO Q12H MDD 2 Qty: 14 0RF Referrals: No Primary/Family,Physician [Primary Care Provider] - In 1 week Problem List Clinical Impression: Acute right MCA stroke Patient/Caregiver Discharge Instructions Print Language: Tongan Stand Alone Forms: [facility] Award Info., Patient Portal Info Letter
--- NOTE | 2025-03-26 23:31 | PC.NURSE ---
Case Consult 03/26/2025 23:30:53 [facility] Case # [id number] has been created.
[2025-03-26 23:32] VITALS: BP 146/107; PULSE 99; RESP 18; RESP 24; O2SAT 96
--- NOTE | 2025-03-26 23:35 | XR_ITS ---
Examination: CT brain head without contrast. 2-D sagittal coronal reconstructions Date and time of exam: March 26, 2025, 11:44 p.m. INDICATIONS: Onset focal neurologic deficit today COMPARISON: October 17, 2023 CTDI: vol (mGy): 47.2 DLP: (mGycm): 930 Technique: Multiple CT axial sections of the brain have been obtained, 5 mm slice thickness. Contrast has not been administered. 2-D sagittal, coronal reconstructions have been obtained Low dose protocols were performed. One or more of the following dose reduction techniques were used; automated exposure control, adjustment of the mA and/or KV according to patient size, use of iterative reconstruction technique. Findings: No significant ventricular enlargement. Intra-axial or extra-axial hemorrhage density is not seen. No mass effect or midline shift Basal cisterns are not remarkable. Fourth ventricle is midline. Cranial vault intact. Extensive artifacts in the posterior fossa Impression: Limited study, extensive: Artifacts in the posterior fossa No visualized acute hemorrhage mass effect or midline shift
--- NOTE | 2025-03-26 23:35 | XR_ITS ---
EXAMINATION: AP chest single view TECHNIQUE: AP portable semiupright chest single view Date and time: March 27, 2025, 12:57 a.m., comparison November 06, 2024 INDICATIONS: Stroke alert FINDINGS: Atelectasis versus aspiration pneumonia right base Mild prominence of the left ventricle Ectatic thoracic aorta Prominent osteopenia with right reverse shoulder arthroplasty and lower cervical plate IMPRESSION: Atelectasis versus aspiration pneumonia right base
--- NOTE | 2025-03-26 23:35 | XR_ITS ---
Examination: CTA carotids with intravenous contrast CTA brain, head with intravenous contrast. 2-D sagittal, coronal reconstructions. 3-D reconstructions. Exam date and time: March 26, 2025, 11:54 p.m. INDICATIONS: Stroke alert, onset left-sided body weakness slurred speech CTDI: vol (mGy) 11.4 DLP: (mGycm) 431 Technique: Multiple CTA axial brain, head carotid images post intravenous contrast injection 75 cc, [id number]. 2-D sagittal, coronal reconstructions. 3-D reconstructions, 3-D post processing including vascular maximum intensity projection images. Low dose protocols were performed. One or more of the following dose reduction techniques were used; automated exposure control, adjustment of the mA and/or KV according to patient size, use of iterative reconstruction technique. Findings: IV line malfunction, no intravenous contrast administered IMPRESSION: IV line malfunction, no intravenous contrast administered
[2025-03-26 23:59] VITALS: BP 131/90
[2025-03-26] MEDS: TENECTEPLASE INJ 50 MG VIAL 18.2 MG IV (23:59)
[2025-03-27] VITALS (19 sets, daily range): BP systolic 130–158; BP diastolic 75–105; PULSE 76–96; RESP 16–19; TEMP 36; O2SAT 94–99
[2025-03-27 00:01] LABS: Basophils # (Auto) 0.1 Thou/mm3 (0.0-0.2); Basophils % (Auto) 1 % (0-2.5); Eosinophils # (Auto) 0.2 Thou/mm3 (0.0-0.5); Eosinophils % (Auto) 2 % (0-10); Hematocrit 37.5 % (36.0-46.0); Hemoglobin 12.4 g/dL (12.0-16.0); Immature Granulocytes Auto 0.08 Thou/mm3 (0.00-0.00); Lymphocytes # (Auto) 4.2 Thou/mm3 (1.0-4.8); Lymphocytes % (Auto) 34 % (10-50); Mean Corpuscular HGB Conc 33.1 g/dl (31.0-37.0); Mean Corpuscular Hemoglobin 28.9 pg (25.0-35.0); Mean Corpuscular Volume 87 fL (80-100); Monocytes # (Auto) 0.7 Thou/mm3 (0.0-0.8); Monocytes % (Auto) 6 % (0-12); Neutrophils # (Auto) 6.9 Thou/mm3 (1.8-7.7); Neutrophils % (Auto) 57 % (37-80); Nucleated Red Blood Cell # 0.00 Thou/mm3 (0.00-0.00); Nucleated Red Blood Cell % 0 /100 WBC (0); Platelet Count 242 Thou/mm3 (140-440); RDW Standard Deviation 40.6 fL (36.4-46.3); Red Blood Count 4.29 Miln/mm3 (4.00-5.20); White Blood Count 12.1 Thou/mm3 (3.6-11.0)
--- NOTE | 2025-03-27 00:07 | PD.TNEURO ---
Tele Neuro Consultation Consultation Date 03/27/25 Most Recent Vital Signs Last Vital Signs Pulse 89 03/27/25 00:04 Resp 19 03/27/25 00:03 BP 148/105 H 03/27/25 00:03 Pulse Ox 98 03/27/25 00:03 O2 Del Method Room Air 03/27/25 00:03 Consultation Narrative [facility] Consult [facility] Patient Name:???Kate Hills Date of :???1945 Identification Number:??? Date of Service:???03/26/2025 23:30:53 Diagnosis:?I63.89 - Cerebrovascular accident (CVA) due to other mechanism ([facility]) Impression: ?79 yo F with PMH of HTN, COPD, DM2, CAD, presents to ED with left sided weakness. ?NIHSS of 17 due to confusion, left sided weakness, facial droop, sensation loss, inattention and right gaze preference with moderate dysarthria. ?CTH without hemorrhage. CTA head and neck pending. ?Syndrome is most concerning for acute ischemic stroke of right MCA territory. ?After establishing eligibility for IV thrombolytics through a careful review of inclusion and exclusion criteria, it was noted that the patient was not able to participate in a risks, benefits, alternative discussion due to stroke deficits. No family was available, and so we proceeded with thrombolytic treatment as an evidence based and guideline endorsed the standard of care. ?TNK administered at 0000. ?Recommend admission to ICU for post thrombolytic care plan and stroke workup. ? Our recommendations are outlined below. Recommendations: IV Tenecteplase recommended. I confirmed the following. (Patient name, , MRN, Blood Pressure, dose of Thrombolytic and waste, weight completed by stretcher/scale not stated weight, have ED staff inform ED MD of thrombolytic decision) Thrombolytic bolus given Without Complication. IV Tenecteplase Total Dose ? 18.0 mg (Dose Rounding Per Facility Protocol) Routine post Thrombolytic monitoring including neuro checks and blood pressure control during/after treatment Monitor blood pressure Check blood pressure and neuro assessment every 15 min for 2 h, then every 30 min for 6 h, and finally every hour for 16 h. Manage Blood Pressure per post Thrombolytic protocol. ? Follow designated hospital protocol for admission and post thrombolytic care ? CT brain 24 hours post Thrombolytic ? NPO until swallowing screen performed and passed ? No antiplatelet agents or anticoagulants (including heparin for DVT prophylaxis) in first 24 hours ? No Caruso catheter, nasogastric tube, arterial catheter or central venous catheter for 24 hr, unless absolutely necessary ? Telemetry ? Bedside swallow evaluation ? HOB less than 30 degrees ? Euglycemia ? Avoid hyperthermia, PRN acetaminophen ? DVT prophylaxis ? Inpatient Neurology Consultation ? Stroke evaluation as per inpatient neurology recommendations Discussed with ED physician Advanced Imaging:Advanced imaging has been ordered. Results pending. Metrics: Last Known Well: 03/26/2025 22:00:15 Dispatch Time: 03/26/2025 23:30:53 Arrival Time: 03/26/2025 23:30:15 Initial Response Time: 03/26/2025 23:32:17Symptoms: left sided weakness. Initial patient interaction: 03/26/2025 23:42:04 NIHSS Assessment Completed: 03/26/2025 23:57:11Patient is a candidate for Thrombolytic. Thrombolytic Medical Decision: 03/26/2025 23:57:12 Needle Time: 03/27/2025 00:00:50Weight Noted by Staff: [address] Head: I personally reviewed all the CT images that were available to me and it showed: no hemorrhage Primary Provider Notified of Diagnostic Impression and Management Plan on: 03/27/2025 00:06:40 Thrombolytic Contraindications: Last Known Well > 4.5 hours:?No CT Head showing hemorrhage:?No Ischemic stroke within 3 months:?No Severe head trauma within 3 months:?No Intracranial/intraspinal surgery within 3 months:?No History of intracranial hemorrhage:?No Symptoms and signs consistent with an SAH:?No GI malignancy or GI bleed within 21 days:?No Coagulopathy: Platelets <100 000 /mm3, INR >1.7, aPTT>40 s, or PT >15 s:?No Treatment dose of LMWH within the previous 24 hrs:?No Use of NOACs in past 48 hours:?No Glycoprotein IIb/IIIa receptor inhibitors use:?No Symptoms consistent with infective endocarditis:?No Suspected aortic arch dissection:?No Intra-axial intracranial neoplasm:?No Thrombolytic Decision and Management Plan: Management with thrombolytic treatment was explained to the Two Physician Consent as was risks and benefits and alternatives to the treatment. Patient agrees with the decision to proceed with thrombolytic treatment. . All questions were answered and the Two Physician Consent expressed understanding of the treatment plan. History of Present Illness:Patient is a 79 year old Female. Patient was brought by EMS for symptoms of left sided weakness. 79 yo F with PMH of HTN, COPD, DM2, CAD, presents to ED with left sided weakness. Per report patient was last seen normal at 2200. Patient is fully alert and oriented at baseline but resides at a SNF. With EMS patient had left sided flaccid weakness with some improvement en route. Patient is a limited historian. ? Past Medical History: ?Hypertension ?Diabetes Mellitus ?Hyperlipidemia unable to obtain due to:?? Patient Is Confused Medications: No Anticoagulant use? No Antiplatelet use Reviewed EMR for current medications Allergies:? NKDA Allergies Unable To Obtain Due To:?Patient Is Confused Social History: Unable To Obtain Due To Patient Status :?Patient Is Confused Family History: Family History Cannot Be Obtained Because:Patient Is Confused ROS :?ROS Cannot Be Obtained Because:? Patient Is Confused Past Surgical History: Past Surgical History Cannot Be Obtained Because: Patient Is Confused There Is No Surgical History Contributory To Today?s Visit ? Examination: BP(146/107),?Pulse(99),?Blood Glucose(359) 1A: Level of Consciousness - Alert; keenly responsive?+ 0 1B: Ask Month and Age - Could Not Answer Either Question Correctly?+ 2 1C: Blink Eyes & Squeeze Hands - Performs Both Tasks?+ 0 2: Test Horizontal Extraocular Movements - Partial Gaze Palsy: Can Be Overcome?+ 1 3: Test Visual Hensley - Complete Hemianopia?+ 2 4: Test Facial Palsy (Use Grimace if Obtunded) - Partial paralysis (lower face)?+ 2 5A: Test Left Arm Motor Drift - Drift, but doesn't hit bed?+ 1 5B: Test Right Arm Motor Drift - No Drift for 10 Seconds?+ 0 6A: Test Left Leg Motor Drift - Some Effort Against [place]?+ 2 6B: Test Right Leg Motor Drift - Some Effort Against [place]?+ 2 7: Test Limb Ataxia (FNF/Heel-Alvarez) - No Ataxia?+ 0 8: Test Sensation - Complete Loss: Cannot Sense Being Touched At All?+ 2 9: Test Language/Aphasia - Mild-Moderate Aphasia: Some Obvious Changes, Without Significant Limitation?+ 1 10: Test Dysarthria - Mild-Moderate Dysarthria: Slurring but can be understood?+ 1 11: Test Extinction/Inattention - Visual/tactile/auditory/spatial/personal inattention?+ 1 NIHSS Score:?17 Pre-Morbid Modified Madalyn Scale: Unable to assess Spoke with :?Dr. Lindsay This consult was conducted in real time using interactive audio and video technology. Patient was informed of the technology being used for this visit and agreed to proceed. Patient located in hospital and provider located at home/office setting. Patient is being evaluated for possible acute neurologic impairment and high probability of imminent or life-threatening deterioration. I spent total of 51 minutes providing care to this patient, including time for face to face visit via telemedicine, review of medical records, imaging studies and discussion of findings with providers, the patient and/or family. Dr Angy Johnson [facility] For Inpatient follow-up with [facility] physician please call [facility] at . As we are not an outpatient service for any post hospital discharge needs please contact the hospital for assistance. If you have any questions for the [facility] physicians or need to reconsult for clinical or diagnostic changes please contact us via [facility] at . Non-radiologist review of imaging performed to assist with emergent clinical decision-making. Remote physician workstations do not possess the same resolution, calibration, or diagnostic capabilities as hospital-based radiology reading stations, and formal radiologist read is necessary. Signature :Stevan Johnson
[2025-03-27 00:10] LABS: HCG Titer if Positive Negative
[2025-03-27 00:16] LABS: INR 1.0 (0.9-1.3); Partial Thromboplastin Time 23.2 Seconds (22.0-36.0); Prothrombin Time 10.5 Seconds (9.0-12.2)
--- NOTE | 2025-03-27 00:18 | XR_ITS ---
Examination: CTA carotids with intravenous contrast CTA brain, head with intravenous contrast. 2-D sagittal, coronal reconstructions. 3-D reconstructions. Exam date and time: March 27, 2025, 12:30 a.m. INDICATIONS: CVA this morning, onset slurred speech focal neurologic deficit CTDI: vol (mGy) 11.5 DLP: (mGycm) 422 Technique: Multiple CTA axial brain, head carotid images post intravenous contrast injection 75 cc, [id number]. 2-D sagittal, coronal reconstructions. 3-D reconstructions, 3-D post processing including vascular maximum intensity projection images. Low dose protocols were performed. One or more of the following dose reduction techniques were used; automated exposure control, adjustment of the mA and/or KV according to patient size, use of iterative reconstruction technique. Findings: No significant common carotid carotid bifurcation or internal carotid artery stenoses in the neck Dominant left vertebral artery in the neck with no critical stenoses No occlusion of the basilar artery Basilar artery tip aneurysm 6 mm Posterior cerebral artery branches do fill M1 segments middle cerebral arteries fill There appears to be occlusion of a M2 right middle cerebral artery branch IMPRESSION: No significant neck arterial stenoses 6 mm aneurysm basilar artery tip Occlusion of a M2 right middle cerebral artery branch
[2025-03-27 00:19] LABS: Alanine Aminotransferase 16 U/L (10-49); Albumin, Serum 4.6 gm/dL (3.4-4.8); Albumin/Globulin Ratio 2.3 (1.2-2.2); Alkaline Phosphatase 68 U/L (46-116); Anion Gap 6 (7-16); Aspartate Amino Transferase 14 U/L (0-34); BUN/Creatinine Ratio 21 Ratio (12-20); Bilirubin,Total 0.2 mg/dL (0.3-1.2); Blood Urea Nitrogen 21 mg/dL (9-23); Calcium 9.8 mg/dL (8.3-10.6); Calcium (Corrected) 9.8 mg/dL (8.5-10.1); Carbon Dioxide 29.3 mMol/L (20.0-31.0); Chloride 103 mMol/L (98-107); Creatinine (Component) 1.0 mg/dL (0.6-1.3); Globulin 2.0 gm/dL (2.3-3.5); Glucose 364 mg/dL (74-106); Magnesium 1.9 mg/dL (1.6-2.6); Osmolality,Calculated 293 (275-295); Potassium 4.1 mMol/L (3.4-5.1); Sodium 138 mMol/L (136-145); Total Protein 6.6 gm/dL (5.7-8.2); Troponin I < 0.002 ng/mL (0.0-0.045); eGFR 57 See Note
[2025-03-27 00:42] LABS: Collection Type, Urine Catheter; Squamous Epithelial Cell,Urine 0 /hpf (0-5)
[2025-03-27 01:03] LABS: Amphetamine/Methamp Scrn,U Negative (Negative); Barbiturate Screen,Urine Negative (Negative); Benzodiazepines Screen,Urine Negative (Negative); Benzoylecgonine Screen, Ur Negative (Negative); Fentanyl Screen,Urine Negative (Negative); Opiate Screen,Urine Negative (Negative); THC Screen,Urine Negative (Negative)
[2025-03-27 01:06] LABS: Bilirubin,Urine Negative (Negative); Blood,Urine Negative (Negative); Clarity,Urine Clear (Clear/Hazy); Color,Urine Colorless (Lt Yel-Yel); Culture Indicated,Urine Not Indicated; Glucose, Urine 4+ (Negative); Ketones,Urine Negative (Negative); Leukocyte Esterase,Urine Negative (Negative); Nitrite,Urine Negative (Negative); PH,Urine 7.0 (5.0-7.0); Protein,Urine Negative (Neg - Trace); RBC,Urine < 1 /hpf (0-3); Specific Gravity,Urine 1.034 (1.001-1.035); Urobilinogen,Urine Negative mg/dL (0.0-1.0); WBC,Urine 3 /hpf (0-5)
--- NOTE | 2025-03-27 01:50 | PC.NURSE ---
THIS PT IS ACCEPTED TO [facility] BY DR. CHANCE. THIS IS A ER:ER TRANSFER AND NUMBER FOR REPORT IS [phone]. AM WAS THE FACILITY REP I SPOKE WITH FOR ACCEPTING INFO.
--- NOTE | 2025-03-27 02:06 | PC.NURSE ---
[facility] CONTACTED FOR POSSIBLE FLIGHT TRANSFER TO [place] [facility] FOR CALL BACK
--- NOTE | 2025-03-27 02:10 | PC.NURSE ---
[facility] ACCEPTED TRANSFER WITH A BEDSIDE ETA OF 0230. SPOKE WITH TRISH
--- NOTE | 2025-03-27 02:20 | PC.NURSE ---
NURSE TO NURSE REPORT GIVEN VIA THE PHONE TO SMITH VALDIVIA AT [facility].
--- NOTE | 2025-03-27 02:22 | PRELIM_ITS ---
CT angiogram of the head and neck with intravenous contrast (axial sections with sagittal and coronal reformats) March 27, 2025 at 00:39 hours Clinical History: Cerebral vascular accident. Comparison: CT of March 26, 2025. Findings: Head: Occlusion of an M2 to branch of the right MCA. The bilateral internal carotid, left middle, and bilateral anterior cerebral arteries are patent bilaterally. The intracranial vertebral arteries are patent. The vertebrobasilar junction, basilar, and posterior cerebral arteries are patent. No evidence of large vessel occlusion or critical stenosis. 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 Neck: The aortic arch, to the extent visualized, as well as the origins of the right brachiocephalic, left common carotid, and left subclavian arteries are patent. The common carotid arteries, carotid bulbs, and internal and external carotid arteries are patent. The origins of the vertebral arteries are unremarkable. The left vertebral artery is dominant. No evidence of vascular occlusion, critical stenosis, dissection, or aneurysm. The soft tissues of the neck are unremarkable. The osseous structures are unremarkable. Impression: Head: Occlusion of an M2 to branch of the right MCA. 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 Neurovascular surgery consult is recommended. Neck: No evidence of vascular occlusion, critical stenosis, dissection, or aneurysm. Discussion Details: Results Discussed With : Dr. Flor at 02:15 AM 03/27/2025 Report Electronically Signed By: Dimas Martin 03/27/2025 2:21:31 AM [EST]
== END 2025-03-27 02:56 | disposition short-term general hospital (02) ==
PROVIDERS: Emergency Provider Emergency Medicine
DX: I63.511 Cerebral infarction due to unspecified occlusion or stenosis of right middle cerebral artery (principal); E11.9 Type 2 diabetes mellitus without complications; I10 Essential (primary) hypertension; I25.10 Atherosclerotic heart disease of native coronary artery without angina pectoris; J44.9 Chronic obstructive pulmonary disease, unspecified; R29.717 NIHSS score 17; R29.810 Facial weakness; Z79.84 Long term (current) use of oral hypoglycemic drugs
CPT/HCPCS: 36415; 51702; 70450; 70496; 70498; 71045; 80053; 80307; 81001; 83735; 84484; 84703; 85025; 85610; 85730; 93005; 99285; A4314; A4649; J3101; Q9967